=== PATIENT | female | born 1970 | race Caucasian/White ===

== ENCOUNTER 2017-04-22 20:13 | Emergency (ER) | payer OTHER ==
[2017-04-22 20:39] VITALS: BP 134/85; PULSE 70; TEMP 98; BMI 37.5
[2017-04-22] MEDS ORDERED: KETOROLAC TROMETHAMINE 30 MG/1 ML VIAL IM ONE (21:10)
--- NOTE | 2017-04-22 21:18 | PDOC ---
History of Present Illness - General Chief Complaint: Back Pain Stated Complaint: BACK PAIN Time Seen by Provider: 04/22/17 20:53 History Source: Patient Exam Limitations: No Limitations - History of Present Illness Initial Comments: 04/22/17 21:07 This is a 47-year-old woman with past medical history of congenital hearing impairment, depression, lower back pain presents today with atraumatic lower back pain for 3 days. Patient states she was asleep overnight and when she woke up and chart the step out of bed she felt sudden onset sharp stabbing pain in her lumbar area radiating 9/10. Patient states she is tried [id number] medications with minimal relief in pain. She denies any saddle anesthesia, numbness or tingling to lower extremities, weakness, trauma, fevers, dysuria, bowel or bladder incontinence. She states the pain is similar to when she had back pain previously. PMD: Denies Pain management: [facility] Past History - Past Medical History Allergies/Adverse Reactions: Allergies Allergy/AdvReac Type Severity Reaction Status Date / Time No Known Allergies Allergy Verified 04/22/17 20:39 Home Medications: Ambulatory Orders Methocarbamol [Robaxin -] 500 mg PO BID #14 tablet 04/22/17 COPD: No Psychiatric Problems: Yes (ANXIETY/DEPRESSION) Other medical history: Depression - Family Disease History Family Disease History: Diabetes: Grandparents, Father - Suicide/Smoking/Psychosocial Hx Smoking History: Never smoked Have you smoked in the past 12 months: No Information on smoking cessation initiated: No Hx Alcohol Use: No Drug/Substance Use Hx: No Substance Use Type: None Trauma Specific PMHX - Complaint Specific PMHX Arthritis: No Back Injury: No Neck Injury: No Hx Sacro Iliac Joint Dysfunction: No Review of Systems - Review of Systems Able to Perform ROS?: Yes Is the patient limited Syriac proficient: No Constitutional: No: Symptoms Reported, See HPI HEENTM: No: Symptoms Reported Respiratory: No: Symptoms reported Cardiac (ROS): No: Symptoms Reported ABD/GI: No: Symptoms Reported : No: Symptoms Reported Musculoskeletal: Yes: See HPI Integumentary: No: Symptoms Reported Neurological: No: Symptoms reported *Physical Exam - Vital Signs Last Vital Signs Temp Pulse Resp BP Pulse Ox 98 F 70 18 134/85 96 04/22/17 20:34 04/22/17 20:34 04/22/17 20:34 04/22/17 20:34 04/22/17 20:34 - Physical Exam General Appearance: Yes: Appropriately Dressed. No: Apparent Distress Neck: positive: Trachea midline Respiratory/Chest: positive: Lungs Clear, Normal Breath Sounds. negative: Respiratory Distress, Accessory Muscle Use Gastrointestinal/Abdominal: positive: Normal Bowel Sounds, Soft. negative: Tender Musculoskeletal: positive: Normal Inspection, Other (Tender to palpation in left and right paraspinous region the lumbar spine. No bony tenderness present. ). negative: CVA Tenderness Extremity: positive: Normal Inspection, Normal Range of Motion Integumentary: positive: Normal Color, Dry, Warm Neurologic: positive: Fully Oriented, Alert, Normal Response, Motor Strength 5 Medical Decision Making - Medical Decision Making 04/22/17 21:12 A/P: 47-year-old past medical history of depression lower back pain with atraumatic lower back pain for 3 days Tender to palpation in bilateral lumbar paraspinous region No bony tenderness, step offs, deformities noted Full sensation to medial and lateral thighs. No change in sensation reported by patient Able to perform straight leg raises against resistance without difficulty Able to flex and extend knees against resistance without difficulty Diagnosis: Atraumatic lower back pain Toradol 30 mg IM now Reassess and discharge 04/22/17 21:54 Patient with pain currently 07/18. Patient states this is acceptable. I will discharge the patient home with prescription for Robaxin *DC/Admit/Observation/Transfer Diagnosis at time of Disposition: Back pain Qualifiers: Back pain location: low back pain Chronicity: acute Back pain laterality: bilateral Sciatica presence: without sciatica Qualified Code(s): M54.5 - Low back pain - Discharge Dispostion Disposition: HOME Condition at time of disposition: Stable Admit: No - Prescriptions Prescriptions: Methocarbamol [Robaxin -] 500 mg PO BID #14 tablet - Referrals - Patient Instructions Printed Discharge Instructions: DI for Low Back Pain Additional Instructions: Apply warm moist heat to affected area help relieve pain. Take Robaxin 500 mg twice a day as needed for pain Make an appointment with the pain management doctor for continued evaluation of this pain. You have been given a recommendation for Dr. De La Torre follow-up as a primary doctor. Return to ER for loss of sensation to buttocks or genitals, loss of control of your bladder or bowels or any other concerns. Thank you very much for choosing us to provide your emergent healthcare needs. - Post Discharge Activity Forms/Work/School Notes: Back to Work
== END 2017-04-22 21:59 | disposition home or self-care (01) ==
LOC: JERFT 20:13
PROC: 3E0333Z Introduction of Anti-inflammatory into Peripheral Vein, Percutaneous Approach (ICD-10-PCS; principal; 2017-04-22)
DX: M54.5 Low back pain (principal); X50.0XXA Overexertion from strenuous movement or load, initial encounter; Y93.89 Activity, other specified; Y92.032 Bedroom in apartment as the place of occurrence of the external cause
CPT/HCPCS: 96372; 99281-25

== ENCOUNTER 2020-04-16 11:32 | Emergency (ER) | payer OTHER ==
[2020-04-16 11:51] VITALS: BP 128/75; PULSE 83; TEMP 97.9; BMI 38.9
[2020-04-16] MEDS ORDERED: ACETAMINOPHEN/CAFFEINE/BUTALBITAL 1 TAB PO ONE (11:57)
[2020-04-16] MEDS ORDERED: METOCLOPRAMIDE HCL 10 MG TABLET (FP) PO ONE ×2 (11:57→12:16)
[2020-04-16] MEDS ORDERED: ACETAMINOPHEN/CAFFEINE/BUTALBITAL 1 TAB ONE (12:16)
[2020-04-16 13:34] LABS: BASO % 0.4 % (0-2.0); EOS % 0.4 % (0-4.5); HEMOGLOBIN 11.5 GM/dL (10.7-15.3); LYMPH % 24.5 % (8-40); MCH 27.8 pg (25.7-33.7); MCHC 32.9 g/dl (32.0-36.0); MEAN CELL VOLUME 84.5 fl (80-96); MEAN PLT VOLUME 10.1 fl (7.5-11.1); MONO % 14.1 % (3.8-10.2); NEUT % 60.6 % (42.8-82.8); PLATELET COUNT 207 K/MM3 (134-434); RBC 4.15 M/mm3 (3.60-5.2); RDW 14.5 % (11.6-15.6); WHITE BLOOD COUNT 5.2 K/mm3 (4.0-10.0)
[2020-04-16 13:59] LABS: POTASSIUM 3.3 mmol/L (3.5-5.1)
[2020-04-16 14:01] LABS: CALCIUM 8.6 mg/dL (8.5-10.1)
[2020-04-16 14:02] LABS: BLOOD UREA NITROGEN 5.9 mg/dL (7-18)
[2020-04-16 14:05] LABS: CREATININE 0.7 mg/dL (0.55-1.3)
[2020-04-16] MEDS ORDERED: POTASSIUM CHLORIDE ORAL LIQUID 20 MEQ/15 ML PO ONE (14:18)
[2020-04-16] MEDS ORDERED: POTASSIUM CHLORIDE ORAL LIQUID 20 MEQ/15 ML ONE (14:31)
== END 2020-04-16 15:16 | disposition home or self-care (01) ==
LOC: JER 11:32
DX: U07.1 COVID-19 (principal); R51.9 Headache, unspecified; R07.9 Chest pain, unspecified
CPT/HCPCS: 36415; 71046-TC-FY; 80048; 85025; 99284-25

== ENCOUNTER → 2022-04-19 | Day surgery (SDC) | payer OTHER | END | disposition home or self-care (01) | LOC: JRADIR 09:14 | PROVIDERS: ATTEND Internal Medicine Endocrinology, Diabetes & Metabolism | PROC: 0G9H3ZX Drainage of Right Thyroid Gland Lobe, Percutaneous Approach, Diagnostic (ICD-10-PCS; principal; 2022-04-19) | DX: E04.1 Nontoxic single thyroid nodule (principal) | CPT/HCPCS: 10005; 76942; 88173; 88305-TC ==

== ENCOUNTER → 2022-07-26 | Day surgery (SDC) | payer OTHER | END | disposition home or self-care (01) | LOC: FMAMMOTONE 08:11 | PROVIDERS: ATTEND Nurse Practitioner Family | PROC: 0HBT3ZX Excision of Right Breast, Percutaneous Approach, Diagnostic (ICD-10-PCS; principal; 2022-07-26) | DX: N60.11 Diffuse cystic mastopathy of right breast (principal); N64.89 Other specified disorders of breast; R92.1 Mammographic calcification found on diagnostic imaging of breast | CPT/HCPCS: 19081; 76098-TC-FY; 88305-TC ==

== ENCOUNTER → 2022-07-30 | Day surgery (SDC) | payer OTHER ==
[2022-07-24 12:14] VITALS: BMI 32.2
[~2022-07-30] MED LIST: BUPIVACAINE HCL/PF 0.25% (2.5MG/ML) 10 ML VIAL IJ ONE; BUPIVACAINE HCL/PF 0.25% (2.5MG/ML) 10 ML VIAL ONE; DEXAMETHASONE SOD PHOSPHATE 10 MG/1 ML VIAL IM ONE; DEXAMETHASONE SOD PHOSPHATE 10 MG/1 ML VIAL ONE; IOHEXOL 180 MG/1 ML ML IJ ONE; LIDOCAINE HCL 1% PRESERVATIVE FREE - 30ML VIAL IJ ONE; LIDOCAINE HCL/PF 1% SDV 5ML VIAL ONE
== END | disposition home or self-care (01) ==
LOC: JASU-SURG 04:04
PROVIDERS: ATTEND Physical Medicine & Rehabilitation
DX: Z53.8 Procedure and treatment not carried out for other reasons (principal)
CPT/HCPCS: J1100

== ENCOUNTER 2024-01-17 15:28 | Inpatient (IN) | payer OTHER ==
[2024-01-17] MEDS: SODIUM CHLORIDE 1,000 ML IV STA (15:48)
[2024-01-17] MEDS ORDERED: ONDANSETRON 4 MG/2 ML VIAL ONE (15:49)
[2024-01-17] MEDS ORDERED: ACETAMINOPHEN INJECTION 100 ML ONE (15:49)
[2024-01-17] MEDS ORDERED: FAMOTIDINE 20 MG/50 ML IVPB 20 MG/50 ML MG IVPB ONE (15:49)
[2024-01-17] MEDS: ONDANSETRON 4 MG/2 ML VIAL IVPUSH ONE (15:50)
[2024-01-17] MEDS: FAMOTIDINE 20 MG/50 ML IVPB 20 MG/50 ML MG IVPB ONE (15:55)
[2024-01-17] MEDS: ACETAMINOPHEN 1000 MG/100 ML BAG IVPB ONE (16:25)
[2024-01-17 16:26] LABS: HEMATOCRIT 47.2 % (32.4-45.2); HEMOGLOBIN 15.7 G/dL (10.7-15.3); MCH 30.9 pg (25.7-33.7); MCHC 33.3 g/dl (32.0-36.0); MEAN CELL VOLUME 92.9 fl (80-96); PLATELET COUNT 207.5 10^3/uL (134-434); RBC 5.08 10^6/uL (3.60-5.2); RDW 13.3 % (11.6-15.6); WHITE BLOOD COUNT 4.6 10^3/uL (4.0-10.8)
[2024-01-17 16:30] LABS: ALBUMIN 4.6 g/dl (3.4-5.0); BILIRUBIN,TOTAL 0.5 mg/dl (0.2-1); CALCIUM 10.1 mg/dl (8.5-10.1); CREATININE 0.9 mg/dl (0.6-1.3); POTASSIUM 4.2 mmol/L (3.5-5.1); TOT PROT 7.1 g/dl (6.4-8.2)
[2024-01-17 16:45] LABS: HCG,QUALITATIVE URINE Negative
[2024-01-17 17:00] LABS: EPITHELIAL CELLS 0-5 /hpf
[2024-01-17 17:39] LABS: PLATELET ESTIMATE ADEQUATE
[2024-01-17] MEDS: CEFEPIME HCL 1 GM VIAL (RESTRICTED TO ID) IVPB STA (18:07)
[2024-01-17 18:49] LABS: INR 0.95 (0.83-1.09); PROTHROMBIN TIME (PATIENT) 10.9 SEC (9.7-13.0)
[2024-01-17 18:52] LABS: ACTIVATED PTT 32.9 SECONDS (25.2-36.5)
[2024-01-17] MEDS ORDERED: PHENYLEPHRINE HCL/COCOA BUTTER 1 EACH SUPP.RECT RC PRN (20:20)
[2024-01-17 20:27] VITALS: BMI 30.7
[2024-01-17] MEDS: ONDANSETRON 4 MG/2 ML VIAL IVPUSH PRN (21:10)
[2024-01-17] MEDS ORDERED: AMPICILLIN NA/SULBACTAM NA 1.5 GM in SODIUM CHLORIDE 100 ML IVPB SCH (22:00)
[2024-01-17] MEDS: ACETAMINOPHEN 1000 MG/100 ML BAG IVPB PRN (22:08)
[2024-01-17] MEDS: LACTATED RINGERS SOLUTION 1,000 ML/1,000 ML INFUS.BAG IV SCH (22:09)
[2024-01-17] MEDS: AMPICILLIN NA/SULBACTAM NA 3 GM in SODIUM CHLORIDE 100 ML IVPB SCH (22:23)
[2024-01-18 08:05] LABS: ALBUMIN 3.4 g/dl (3.4-5.0); BLOOD UREA NITROGEN 12.6 mg/dL (7-18)
[2024-01-18 08:08] LABS: CREATININE 0.9 mg/dL (0.55-1.3)
[2024-01-18 08:09] LABS: BILIRUBIN,TOTAL 0.6 mg/dL (0.2-1)
[2024-01-18 08:10] LABS: TOT PROT 6.4 g/dl (6.4-8.2)
[2024-01-18 08:13] LABS: HEMATOCRIT 40.2 % (32.4-45.2); HEMOGLOBIN 13.3 GM/dL (10.7-15.3); MCH 30.3 pg (25.7-33.7); MCHC 33.2 g/dl (32.0-36.0); MEAN CELL VOLUME 91.3 fl (80-96); MEAN PLT VOLUME 8.7 fl (7.5-11.1); PLATELET COUNT 192 10^3/uL (134-434); RDW 13.1 % (11.6-15.6); WHITE BLOOD COUNT 4.3 K/mm3 (4.0-10.0)
[2024-01-18] MEDS ORDERED: ONDANSETRON 4 MG/2 ML VIAL ONE (10:30)
[2024-01-18] MEDS ORDERED: BUPIVACAINE HCL/PF 0.25% (2.5MG/ML) 10 ML VIAL ONE (10:30)
[2024-01-18] MEDS ORDERED: DEXAMETHASONE SOD PHOSPHATE 4 MG/1 ML VIAL ONE (10:30)
[2024-01-18] MEDS ORDERED: LIDOCAINE HCL/PF 2% SDV 5ML VIAL ONE (10:30)
[2024-01-18] MEDS ORDERED: PROPOFOL 20 ML ONE (10:31)
[2024-01-18] MEDS ORDERED: ROCURONIUM BROMIDE 50 MG/5 ML SYRINGE ONE (10:31)
[2024-01-18] MEDS ORDERED: MIDAZOLAM HCL 2 MG/2 ML SINGLE DOSE VIAL ONE (10:31)
[2024-01-18] MEDS ORDERED: ONDANSETRON 4 MG/2 ML VIAL IVPUSH PRN ×2 (10:58→13:08)
[2024-01-18] MEDS ORDERED: HYDROmorphone HCl 2 MG/ML VIAL IVPUSH PRN (10:59)
[2024-01-18] MEDS: BUPIVACAINE HCL/PF 0.25% (2.5MG/ML) 10 ML VIAL IJ ONE (11:38)
[2024-01-18] MEDS ORDERED: ACETAMINOPHEN INJECTION 100 ML ONE (11:38)
[2024-01-18] MEDS ORDERED: KETOROLAC TROMETHAMINE 30 MG/1 ML VIAL ONE (12:34)
[2024-01-18] MEDS ORDERED: SUGAMMADEX SODIUM 200 MG/2 ML VIAL ONE (12:34)
[2024-01-18] MEDS ORDERED: HYDROmorphone HCL CARPU-JECT 2 MG/1 ML DISP.SYRIN ONE (13:00)
[2024-01-18] MEDS: HYDROmorphone HCl 2 MG/ML VIAL IVPUSH PRN (13:03)
[2024-01-18] MEDS: LACTATED RINGERS SOLUTION 1,000 ML IV SCH ×2 (13:04→13:13)
[2024-01-18] MEDS: oxyCODONE HCL 5 MG TABLET PO PRN (15:30)
[2024-01-18] MEDS: KETOROLAC TROMETHAMINE 15 MG/ML VIAL IVPUSH ONE (18:50)
[2024-01-18] MEDS: ACETAMINOPHEN 1000 MG/100 ML BAG IVPB SCH (20:06)
[2024-01-18] MEDS: ONDANSETRON 4 MG/2 ML VIAL IVPUSH PRN (21:55)
[2024-01-19 04:24] VITALS: RESP 18
[2024-01-19] MEDS ORDERED: IBUPROFEN 600 MG TABLET (FP) PO PRN (08:00)
[2024-01-19 08:54] LABS: BASO % 0.6 % (0-2.0); EOS % 0.5 % (0-4.5); HEMATOCRIT 40.7 % (32.4-45.2); HEMOGLOBIN 13.4 GM/dL (10.7-15.3); MCH 30.1 pg (25.7-33.7); MCHC 32.8 g/dl (32.0-36.0); MEAN CELL VOLUME 91.8 fl (80-96); MEAN PLT VOLUME 8.2 fl (7.5-11.1); MONO % 8.7 % (3.8-10.2); NEUT % 55.2 % (42.8-82.8); PLATELET COUNT 201 10^3/uL (134-434); RBC 4.43 M/mm3 (3.60-5.2); WHITE BLOOD COUNT 6.5 K/mm3 (4.0-10.0)
[2024-01-19 09:16] LABS: POTASSIUM 3.6 mmol/L (3.5-5.1)
[2024-01-19 09:18] LABS: CALCIUM 9.1 mg/dL (8.5-10.1)
[2024-01-19 09:19] LABS: ALBUMIN 3.4 g/dl (3.4-5.0); BLOOD UREA NITROGEN 9.3 mg/dL (7-18)
[2024-01-19 09:22] LABS: CREATININE 0.9 mg/dL (0.55-1.3)
[2024-01-19 09:23] LABS: BILIRUBIN,TOTAL 0.6 mg/dL (0.2-1); TOT PROT 6.4 g/dl (6.4-8.2)
[2024-01-19 14:44] VITALS: BP 122/71; PULSE 88; TEMP 97.8
== END 2024-01-19 14:00 | disposition home or self-care (01) | DRG 263 ==
LOC: FER 15:28 → J6S 19:12
PROVIDERS: ADMIT Surgery; ATTEND Internal Medicine
PROC: 8E0W4CZ Robotic Assisted Procedure of Trunk Region, Percutaneous Endoscopic Approach (ICD-10-PCS; 2024-01-18)
PROC: 0FT44ZZ Resection of Gallbladder, Percutaneous Endoscopic Approach (ICD-10-PCS; principal; 2024-01-18 11:00)
DX: K80.00 Calculus of gallbladder with acute cholecystitis without obstruction (principal); I10 Essential (primary) hypertension; K21.9 Gastro-esophageal reflux disease without esophagitis; G43.909 Migraine, unspecified, not intractable, without status migrainosus; M17.11 Unilateral primary osteoarthritis, right knee
CPT/HCPCS: 36415; 74177-TC; 76705-TC; 80053; 81003; 81015; 83690; 84703; 85025; 85027; 85610; 85651; 85730; 86140; 86850; 86900; 86901; 87086; 88304-TC; 94760; 99285-25; J0131; Q9967